=== PATIENT | male | born 1965 | race Caucasian/White ===

== ENCOUNTER → 2020-12-04 10:55 | Outpatient (BNVA) | payer OTHER, SELFPAY | PROVIDERS: PCP Internal Medicine; Visit Provider Internal Medicine Rheumatology | DX: M15.9 Polyosteoarthritis, unspecified (principal); Z79.899 Other long term (current) drug therapy; Z11.59 Encounter for screening for other viral diseases; Z11.1 Encounter for screening for respiratory tuberculosis; Z87.2 Personal history of diseases of the skin and subcutaneous tissue; F17.210 Nicotine dependence, cigarettes, uncomplicated; F17.220 Nicotine dependence, chewing tobacco, uncomplicated | CPT/HCPCS: 99204 ==

== ENCOUNTER 2020-12-04 12:43 | Outpatient (CLI) | payer MEDICARE, SELFPAY ==
--- NOTE | 2020-12-04 12:51 | XR_ITS ---
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 Findings: No nodules, masses or effusions are seen. The heart is normal. The pulmonary vascularity is not increased. No pneumonia or pneumothorax is seen. XR/XR chest 2V* [id number] Impression: Negative chest.
--- NOTE | 2020-12-04 12:51 | XR_ITS ---
WS: [id number] Right foot, 3 views, 12/04/2020 Clinical Data: Z79.899 - Other prison (current) drug therapy Comparison: None. Findings: No fractures or dislocations are seen. No bone destruction or erosion is noted. There is osteoarthrit ic change between the right first metatarsal and right first proximal phalanx of the foot. There is a small plantar spur. XR/XR foot RT min 3V* 75094 Impression: Osteoarthritis at the right first MTP joint of the foot.
--- NOTE | 2020-12-04 12:51 | XR_ITS ---
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 Findings: No fractures or dislocations are seen. The SI joints and pubic symphysis are intact. The soft tissues are not remarkable. There is acetabular spurring of both hips. No erosion, sclerosis or narrowing of the hips is seen. XR/XR pelvis 1-2V* 77030 Impression: 1. Negative pelvis. 2. Mild osteoarthritis of both hips.
--- NOTE | 2020-12-04 12:51 | XR_ITS ---
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 Findings: No fractures or dislocations are seen. No bone destruction or erosion is noted. There is osteoarthrit ic change at the left first MTP joint. There is a small plantar spur. 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
--- NOTE | 2020-12-04 12:51 | XR_ITS ---
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 Findings: No fractures or dislocations are seen. The soft tissues are unremarkable. The joint spaces are normal . There is osteoarthritic change between the distal left ulna and radius. No periarticular demineralization or calcifications are seen. XR/XR hand LT min 3V* [id number] Impression: Negative left hand.
--- NOTE | 2020-12-04 12:51 | XR_ITS ---
WS: [id number] Right hand, 3 views, 12/04/2020 Clinical Data: Z79.899 - Other custodial (current) drug therapy Comparison: None. Findings: No fractures or dislocations are seen. The soft tissues are unremarkable. The joint space s are normal No periarticular demineralization or calcifications are seen. XR/XR hand RT min 3V* [id number] Impression: Negative right hand.
[2020-12-04 13:52] LABS: Basophils # 0.1 10^3/uL (0.0-0.1); Basophils % 0.5 %; Eosinophils # 0.2 10^3/uL (0.0-0.8); Hematocrit 44.1 % (42.0-52.0); Hemoglobin 14.5 g/dL (11.7-16.6); Lymphocytes # 2.6 10^3/uL (0.8-4.8); Lymphocytes % 24.2 %; Mean Corpuscular HGB Conc 32.9 g/dL (30.0-36.0); Mean Corpuscular Hemoglobin 29.3 pg (28.0-34.0); Mean Corpuscular Volume 89.1 fL (80-94); Mean Platelet Volume 9.8 fL (7.4-10.4); Monocytes # 0.8 10^3/uL (0.2-0.9); Monocytes % 7.1 %; Neutrophils # 6.95 10^3/uL (1.8-7.7); Neutrophils % 65.8 %; Nucleated Red Blood Cells % 0 %; Platelet Count 277 10^3/cmm (130-400); Red Blood Count 4.95 10^6/uL (4.1-5.3); Red Cell Distribution Width 12.7 % (12.1-15.1); White Blood Count 10.6 10^3/uL (4.0-10.0)
[2020-12-04 14:46] LABS: Erythrocyte Sedimentation Rate 20 mm/hr (0-10)
[2020-12-04 14:59] LABS: 25 Hydroxy Vitamin D 32 ng/mL (30-100); Alanine Aminotransferase 28 U/L (0-41); Albumin Level 4.4 g/dL (3.5-5.2); Alkaline Phosphatase 142 IU/L (40-130); Aspartate Amino Transferase 21 U/L (0-40); Glomerular Filtration Rate 87.9 mL/min (90-130); Hepatitis B Core AB, Total Non-Reactive (Nonreactive); Hepatitis B Surface Antigen Non-Reactive (Nonreactive); Hepatitis C Virus Antibody Non-Reactive (Nonreactive); Total Bilirubin 0.2 mg/dL (0.15-1.2); Total Protein 7.4 g/dL (6.6-8.7)
[2020-12-05 13:38] LABS: Cyclic Citrullinated Peptide <16 UNITS
[2020-12-06 15:41] LABS: Quantiferon Mitogen 8.02 IU/mL; Quantiferon Nil 0.01 IU/mL; Quantiferon TB Gold NEGATIVE (NEGATIVE)
[2020-12-06 20:02] LABS: HLA-B27 NEGATIVE (NEGATIVE)
== END 2020-12-04 12:44 | disposition home or self-care (01) ==
PROVIDERS: PCP Internal Medicine; Visit Provider Internal Medicine Rheumatology
DX: M19.90 Unspecified osteoarthritis, unspecified site (principal); Z79.899 Other long term (current) drug therapy; Z11.59 Encounter for screening for other viral diseases; M45.9 Ankylosing spondylitis of unspecified sites in spine; Z11.1 Encounter for screening for respiratory tuberculosis
CPT/HCPCS: 36415; 71046; 72170; 73130; 73630; 80076; 82306; 82565; 85025; 85651; 86140; 86431; 86480; 86704; 86803; 86812; 87340

== ENCOUNTER → 2021-01-06 13:03 | Outpatient (BNVA) | payer OTHER, SELFPAY | PROVIDERS: PCP Internal Medicine; Visit Provider Internal Medicine Rheumatology | DX: M19.90 Unspecified osteoarthritis, unspecified site (principal); Z87.2 Personal history of diseases of the skin and subcutaneous tissue; Z79.899 Other long term (current) drug therapy; M47.9 Spondylosis, unspecified; M75.52 Bursitis of left shoulder; F17.210 Nicotine dependence, cigarettes, uncomplicated; F17.220 Nicotine dependence, chewing tobacco, uncomplicated; Z71.89 Other specified counseling | CPT/HCPCS: 99214 ==